=== PATIENT | female | born 1985 | race Caucasian/White ===

== ENCOUNTER 2019-01-10 06:15 | Inpatient (IN) | payer OTHER ==
[~2019-01-10] VITALS: Ht 172.7 cm; Wt 83.2 kg
[2019-01-10] VITALS (41 sets, daily range): BP systolic 94–129; BP diastolic 44–574; PULSE 47–85; TEMP 97.8–98.3
[~2019-01-10 06:15] MED LIST: MOTRIN 800800 MG/TAB PO; PRENATAL1 TA7 PO
--- NOTE | 2019-01-10 06:45 | NUR ---
0620- Pt arrives on unit ambulatory with complaints of SROM at 0515 this morning. Pt into bathroom to change into gown, voids. 0624- EFM and TOCO on and tracing. Pt denies complications with . Denies UCs. +FM and "bloody show" this morning. 0630- Amniotrace positive, SVE completed, moderate amount of clear fluid noted with exam. Plan of care explained and questions answered. Assessment completed.
--- NOTE | 2019-01-10 07:15 | NUR ---
0655- IV start without difficutly, labs obtained per order. Consents explained and signed. Pt desires ambulation once admission process completed. 0711- EFM and TOCO off. Pt up to bathroom, pad and underwear on. Pt ambulates on unit with and son.
[2019-01-10 07:26] LABS: BASO % 0.2 % (0.0-2.0); EOS # 0.1 (0.0-0.7); EOS % 0.8 % (0-4.0); GRAN # 6.3 (1.4-6.5); GRAN % 73.9 % (42.2-75.2); LYMPH # 1.5 (1.2-3.4); MEAN CELL VOLUME 83 fl (80.0-100.0); MEAN CORPUSCULAR HEMOGLOBIN 27 pg (27.0-31.0); MEAN CORPUSCULAR HGB CONC 33 g/dl (33.0-37.0); MEAN PLATELET VOLUME 10.4 fl (7.4-10.4); MONO # 0.6 (0.1-0.6); MONO % 7.4 % (1.7-9.3); PLATELET COUNT 232 K/mm3 (130-400); RED BLOOD COUNT 4.47 M/mm3 (4.10-5.30); REDCELL DISTRIBUTION WIDTH-CV 13.2 % (11.5-14.5)
[2019-01-10 07:28] LABS: HEMATOCRIT 36.9 % (37.0-47.0)
--- NOTE | 2019-01-10 08:00 | NUR ---
0734- Pt back into bed, EFM and TOCO on and tracing. Discussed plan to start Pitocin to augment labor, questions answered. 0750- Pitocin started per Policy at 2mu.
--- NOTE | 2019-01-10 14:08 | NUR ---
1400- Ceballos removed without difficulty. 1402- Pitocin off. 1404- Dr Sylvester at bedside, Pt and room prepped for delivery. Terrell, Nursery RN at bedside. 1407- Pt pushes with UC. 1408- of viable male infant. Cord clamped and cut. to mother's abd where dried and stimulated, tended to by nursery RN. Cord blood obtained. 1412- Spontaneous delivery of placenta. Pitocin restarted at 333ml/hr. Right and Left labia laceration repaired by . Fundus firm. Pericare completed, Ice pack to perineum. Pt tolerated well.
--- NOTE | 2019-01-10 14:08 | NUR ---
1342- SVE, Pt complete/0 station. Pt repositioned to sitting upright with foot of bed lowered. Monitoring FHR.
--- NOTE | 2019-01-10 17:00 | NUR ---
Pt ambulates to bathroom independently with stand-by assist x1, voids 500mls without difficulty. Pericare completed and explained. Clean gown on. Pt starts feeling slightly dizzy. Pt assisted to bed. Taken to PP room via wheelchair. Transfers independently. Verbalizes feeling better. Oriented to PP room. Infant, and family at bedside. Call light within reach.
[2019-01-11 04:00] VITALS: BP 101/52; PULSE 56; TEMP 98.1
[2019-01-11 07:40] VITALS: BP 101/50; PULSE 55; TEMP 97.8
[2019-01-11] MEDS ORDERED: PERCOCET 325 MG1 TA2 PO (08:36)
[2019-01-11] MEDS ORDERED: MOTRIN 800800 MG/TAB PO (08:36)
--- NOTE | 2019-01-11 12:20 | NUR ---
Initial visit; Parents thanked Director Television for offering congratulations and God's blessings for the of their son. Director Television thanked family for choosing [facility].
[2019-01-11 15:30] VITALS: BP 116/61; PULSE 68; TEMP 98
[2019-01-11 20:45] VITALS: BP 119/50; PULSE 62
[2019-01-12 08:45] VITALS: BP 118/64; PULSE 76; TEMP 98
== END 2019-01-12 12:10 | disposition home or self-care (01) | DRG 806 ==
LOC: LDRO 06:15 → OB 06:42 → LDR 06:42 → OB 17:15
PROVIDERS: ADMIT Obstetrics & Gynecology
PROC: 10E0XZZ Delivery of Products of Conception, External Approach (ICD-10-PCS; principal; 2019-01-10)
PROC: 0UQGXZZ Repair Vagina, External Approach (ICD-10-PCS; 2019-01-10)
DX: O42.92 Full-term premature rupture of membranes, unspecified as to length of time between rupture and onset of labor (principal); O71.4 Obstetric high vaginal laceration alone; Z37.0 Single live birth; O69.1XX0 Labor and delivery complicated by cord around neck, with compression, not applicable or unspecified; Z3A.37 37 weeks gestation of pregnancy
CPT/HCPCS: J2590; J2795; J7120

== ENCOUNTER → 2019-01-25 | Outpatient (CLI) | payer OTHER ==
[~2019-01-25] MED LIST changes: +PERCOCET 325 MG1 TA2 PO
--- NOTE | 2019-01-25 11:35 | NUR ---
Tonyjensen into outpatient clinic with two week old Max for evaluation and weight check. Max was born on [birth year] with a weight of 7 #14 oz. Ela states Max is nursing 8+ times per day and receives one bottle of 2 oz EBM at night in place of a session. Ela states Max is having atleast 6 wet diapers and 6 stools per day; however, she states his stools switched from yellow to green at one week of age and are starting to change back to yellow. Ela denies changes to diet, medications, or herbal supplements that may be causing green stools. While in clinic, Max nursed from one breast and took 48 grams and was uninterested in the second breast. Since discharge, Max has gained 13 oz in the past 13 days. POC: Continue to feed ad marquis, emptying one breast before switching to ensure Max is getting hind milk as a fore/hind milk imbalance may be attributing to the green stools. Return to clinic with further concerns.
== END ==
LOC: LAC 10:36
DX: Z39.1 Encounter for care and examination of lactating mother (principal); Z71.89 Other specified counseling

== ENCOUNTER → 2019-02-01 | Outpatient (CLI) | payer OTHER ==
--- NOTE | 2019-02-01 11:38 | NUR ---
Ela Baron into outpatient walk-in clinic with three week old Max for weight check and evaluation. Max was born [birth year] with a weight of 7# 14 oz. Last week's prefeed weight was noted as 8#9.2 oz (3890 grams). Today's prefeed weight was 9# 1.0 oz (4110 grams). A gain of 7.4 oz in the past week. Ela states Max is nursing 12+ times per day and is having 8-9 wet diapers and 6+ yellow/ seedy diapers per day. Suzette states he typically only nurses from one breast per feeding. SAURAV discussed offering second breat to see if she can keep Max a little more satisfied to possibly cut down on number of feeds per day. While in clinic. Max nursed bilaterally. Good latch and position noted. Total gain 2.85 oz. POC: Continue to feed ad marquis, offering both breasts per feeding. Return to clinic for weights checks as desired or for further issues.
== END ==
LOC: OLC 10:27
DX: Z39.1 Encounter for care and examination of lactating mother (principal); Z71.89 Other specified counseling

== ENCOUNTER 2019-06-07 05:01 | Emergency (ER) | payer OTHER ==
[~2019-06-07] VITALS: Ht 172.7 cm; Wt 72.7 kg
[2019-06-07 05:06] VITALS: TEMP 98.3
[2019-06-07 05:19] LABS: COLLECTION METHOD CLEAN CATCH
[2019-06-07 05:27] LABS: PH 5 (5-8); SQUAMOUS EPITHELIAL 0-2 /hpf; URINE APPEARANCE Cloudy; URINE BACTERIA Rare /hpf; URINE BILIRUBIN Negative (NEGATIVE); URINE BLOOD 3+ (NEGATIVE); URINE COLOR Yellow; URINE GLUCOSE Negative (NEGATIVE); URINE KETONE 1+ (NEGATIVE); URINE LEUKOCYTE ESTERASE 3+ (NEGATIVE); URINE NITRATE Negative (NEGATIVE); URINE PROTEIN(semi-quant) 1+ (NEGATIVE); URINE RBC >50 /hpf; URINE UROBILINOGEN Negative (NEGATIVE)
[2019-06-07] MEDS ORDERED: CIPRO 500MG TA500 MG PO (05:59)
[2019-06-07] MEDS ORDERED: CEPHALEXIN500 M1 PO (06:07)
[2019-06-07 06:39] VITALS: BP 104/53; PULSE 51
== END 2019-06-07 06:39 | disposition home or self-care (01) ==
LOC: COL.ER 05:01
PROVIDERS: Emergency Medicine
DX: N39.0 Urinary tract infection, site not specified (principal)
CPT/HCPCS: J0696

== ENCOUNTER 2021-10-12 01:18 | Inpatient (IN) | payer SELFPAY ==
[~2021-10-12] VITALS: Ht 175.3 cm; Wt 87.7 kg
[2021-10-12] VITALS (43 sets, daily range): BP systolic 92–127; BP diastolic 47–92; PULSE 53–88; TEMP 97.9–98.7
[~2021-10-12 01:18] MED LIST changes: +CEPHALEXIN500 M1 PO; +CIPRO 500MG TA500 MG PO
--- NOTE | 2021-10-12 01:20 | NUR ---
PT TO UNIT AMBULATORY WITH COMPLAINTS OF SROM AT 0030. PT ORIENTED TO ROOM, CHANGED INTO GOWN. VS OBTAINED, EFM X2 APPLIED, SVE PERFORMED.
--- NOTE | 2021-10-12 02:15 | NUR ---
0130- AMNIOSWAB POSITIVE, AMNIOTIC FLUID PINK TINGED. 0208- PT OFF MONITOR AT THIS TIME TO SHOWER PRIOR TO IV START. 0215- DR. MARTINEZ ON UNIT, NOTIFIED OF PINK TINGED AMNIOTIC FLUID. WILL CONTINUE TO MONITOR. PER DR. MARTINEZ PT MAY HAVE AN EPIDRUAL WHEN SHE DESIRES, START PITOCIN AT 0600 IF NO CERVICAL CHANGE OR INCONSISTENT CONTRACTION PATTERN.
[2021-10-12 03:33] LABS: HEMOGLOBIN 11.3 g/dl (12.5-16.0); MEAN CELL VOLUME 80 fl (80.0-100.0); MEAN CORPUSCULAR HEMOGLOBIN 26 pg (27-31); MEAN CORPUSCULAR HGB CONC 32 g/dl (33.0-37.0); MEAN PLATELET VOLUME 10.4 fl (7.4-10.4); PLATELET COUNT 248 K/mm3 (130-400); RED BLOOD COUNT 4.36 M/mm3 (4.10-5.30); REDCELL DISTRIBUTION WIDTH-CV 13.8 % (11.5-14.5)
[2021-10-12 03:41] LABS: HEMATOCRIT 34.9 % (37.0-47.0)
[2021-10-12 03:57] LABS: BASOPHIL 1 % (0-2); EOSINOPHIL 3 % (0-4); LYMPHOCYTE 17 % (20.0-51.0); METAMYELOCYTE 1 % (0-0); NEUTROPHILS 73 % (42.0-75.2)
[2021-10-12 03:58] LABS: HYPOCHROMIA 1+; PLATELET ESTIMATE NORMAL (NORMAL)
[2021-10-12] MEDS ORDERED: PRENATAL TABLET PO (04:07)
--- NOTE | 2021-10-12 08:37 | NUR ---
0837Patient requesting epidural. Kathryn Perez DI[employer]OND POWDER MIXER notified. LR bolus infusing. 0840DrPaloma Mata to bedside. Reviews plan of care with patient and spouse.
--- NOTE | 2021-10-12 09:27 | NUR ---
0927Patient to edge of bed for epidural placement. FHR tracing intermittently due to maternal position. 0930T. Chris SILK SCREEN ETCHER to bedside. 0936Epidural placed and test dose at this time by Kathryn Perez CRNA. See anesthesia record.
--- NOTE | 2021-10-12 10:20 | NUR ---
1020Patient reports increased rectal pressure and urge to push. SVE C/+1. Dr. Mata updated on pt, see physician notification. Krystal care provided, pads changed and pt repositioned in bed. 1032Dr. Esperanza at bedside for delivery. Pt in footplates and instructed on pushing with contractions. 1034Patient begins to push with contractions with Dr. Mata at bedside. Strong maternal effort. Large crown. 1035Spontaneous vaginal delivery of viable female infant. To mother's chest where dried and stimulated by nursery RN. Pitocin paused. 1037Cord clamped x2 and cut by father of . Care of assumed by Hailey Mary RN. Pitocin to 333ml/hr per orders. Perineum intact. Fundus firm, midline and bleeding minimal. Krystal care provided, pads changed, and ice pack to perineum. Plan of care and safety precautions reviewed. See doctor dictation, anesthesia record, and nurses notes.
[2021-10-13] MEDS ORDERED: IBU800 M1 PO (08:37)
[2021-10-13 08:50] VITALS: BP 109/52; PULSE 77; TEMP 97.8
== END 2021-10-13 14:55 | disposition home or self-care (01) | DRG 805 ==
LOC: LDRO 01:18 → LDR 01:42 → OB 13:30
PROVIDERS: Obstetrics & Gynecology; ADMIT Obstetrics & Gynecology
PROC: 10E0XZZ Delivery of Products of Conception, External Approach (ICD-10-PCS; principal; 2021-10-12)
PROC: 3E033VJ Introduction of Other Hormone into Peripheral Vein, Percutaneous Approach (ICD-10-PCS; 2021-10-12)
DX: O42.913 Preterm premature rupture of membranes, unspecified as to length of time between rupture and onset of labor, third trimester (principal); O60.14X0 Preterm labor third trimester with preterm delivery third trimester, not applicable or unspecified; Z37.0 Single live birth; O99.02 Anemia complicating childbirth; D64.9 Anemia, unspecified; Z3A.36 36 weeks gestation of pregnancy
CPT/HCPCS: J2590; J7120